=== PATIENT | female | born 1940 | race African-American/Black ===

== ENCOUNTER → 2019-05-15 | Outpatient (CLI) | payer OTHER ==
[~2019-05-15] MED LIST: ARAVA20 MG PO; ASA; ASPIR 8181 MG PO; CARVEDILOL3.125 MG PO; CENTRUM SILVER1 EAC4 PO; HYDROCODON-ACE1 EAC7 PO; K-DUR 20 MEQ T20 MEQ PO; LEFLUNOMIDE20 MG PO; LEVOTHYROXIN0.088 MG PO; LISINOPRIL2.5 MG PO; NAPROSYN500 MG PO; OMEPRAZOLE 20 M20 M1 PO; PREDNISONE 5 MG5 M1 PO; TRAMADOL 50 MG50 MG PO; TUMS PO; ULTRACET TABLET1 TAB PO; VITAMIN D2000 UNIT PO; VITAMINC500 PO
== END ==
LOC: RAD 14:07
DX: M47.26 Other spondylosis with radiculopathy, lumbar region (principal); M48.061 Spinal stenosis, lumbar region without neurogenic claudication; M46.06 Spinal enthesopathy, lumbar region; M41.86 Other forms of scoliosis, lumbar region

== ENCOUNTER → 2019-05-23 | Outpatient (CLI) | payer OTHER | LOC: MRI 14:36 | DX: M40.46 Postural lordosis, lumbar region (principal); M51.16 Intervertebral disc disorders with radiculopathy, lumbar region; M51.37 Other intervertebral disc degeneration, lumbosacral region; M43.16 Spondylolisthesis, lumbar region; M05.79 Rheumatoid arthritis with rheumatoid factor of multiple sites without organ or systems involvement; G89.29 Other chronic pain; M51.24 Other intervertebral disc displacement, thoracic region; M51.25 Other intervertebral disc displacement, thoracolumbar region; M12.88 Other specific arthropathies, not elsewhere classified, other specified site; M48.061 Spinal stenosis, lumbar region without neurogenic claudication; M47.815 Spondylosis without myelopathy or radiculopathy, thoracolumbar region ==

== ENCOUNTER → 2019-11-13 | Outpatient (CLI) | payer OTHER ==
[~2019-11-13] VITALS: Ht 162.6 cm; Wt 61.7 kg
[~2019-11-13] MED LIST changes: -LEVOTHYROXIN0.088 MG PO; +LEVOXYL88 MCG PO; +ULTRAM50 MG PO
[2019-11-13 13:07] VITALS: BP 148/81
--- NOTE | 2019-11-13 13:28 | NUR ---
Pain Clinic Assessment: 1. History of Osteoarthritis: KNEES SPINE History of Rheumatoid Arthritis: YES 2. Height: 5 ft. 4 in. 162.6 cm. Weight: 136.0 lb. oz. 61.689 kg. Patient's BMI: 23.3 3. Vital Signs: BP: 148/81 Pulse: 70 Resp: 14 Temp: 02 Sat: 98 ECG Mon: 4. Pain Intensity: 8 5. Fall Risk: Dizziness: N Needs help standing or walking: Y Fallen in the last 3 months: N Fall risk comments: 6. Patient on Blood Thinner: None 7. History of Hypertension: N 8. Opioid Therapy greater than 6 weeks: N Opiate Contract Signed: 9. Risk Assessment Tool Provided: 10. Functional Assessment Tool: 11. Recreational Drug Use: Never Drug Type: Tobacco Use: Never Smoker Tobacco Type: Amount or Packs/day: How Many Years: Alcohol Use: No Frequency: Quant:
--- NOTE | 2019-11-26 09:14 | HPC ---
[facility] [address] [address] PAIN MANAGEMENT CONSULTATION Name: VERN OVERTON [facility] [id number] Admission: 11/13/19 Attend Phys: Pino Cuellar DO Discharge: Date of : 40 Report #: [id number] THIS REPORT FOR: cc: Denae Toney MD,Pino Carrillo MD, DO ~ DATE OF SERVICE: 11/13/2019 REFERRING PHYSICIAN: Dr. Isaias Triplett CHIEF COMPLAINT: Low back pain, along with left lower extremity pain with paresthesias. HISTORY OF PRESENT ILLNESS: As you know, the patient is a very pleasant 79-year-old female who reports longstanding history of low back pain, left lower extremity pain that began somewhere between [id number]. She denies any specific injury or trauma. She has "just put up with the symptoms." She has discussed her case with her primary care physician who has trialled conservative treatment options with no benefit. Apparently, the patient was on gabapentin, but was taking it on an as needed basis and had only taken 3-4 doses in a week, too sporadic to really receive any improvement. She stated she was experiencing some GI upset with that medication. She sought further evaluation through her care giver, Dr. Isaias Triplett, who sent her for x-ray imaging, which showed degenerative changes. Those degenerative changes prompted MRI, which showed severe central canal stenosis at multiple levels. The patient was subsequently referred to our clinic and based on the notes from Dr. Isaias Triplett, may be also seen by Neurosurgery, though the patient at this point has not had that consultation. She has been referred to our service to discuss treatment options for lumbar radicular symptoms. The patient indicates today her pain is continuous and steady. She describes the pain as burning, aching, throbbing, sharp, tender, numbness and tingling, places current pain score at 8/10, daily average at 7-8/10, worst pain that has been is 10/10. The patient states that any activities exacerbate symptoms, rest tends to improve pain. She has been referred to our service to discuss treatment options for suspected lumbar radiculopathy based on the findings of her MRI, which showed severe central canal stenosis at multiple levels and near complete obliteration of the lateral recess on the left at the L5-S1 level. PAST MEDICAL HISTORY: 1. Hypertension. 2. Hypothyroidism. 3. Chronic colon problems. 4. Chronic gastroesophageal reflux disease and abdominal pain. 5. Degenerative joint disease. [facility] [address] [place] [address] PAIN MANAGEMENT CONSULTATION Name: VERN OVERTON Room #: REG [facility] Ji#: [id number] Admission: 11/13/19 Attend Phys: Pino Cuellar DO Discharge: Date of : 40 Report #: [id number] 6. Osteoarthritis. 7. Rheumatoid arthritis. 8. Chronic low back pain. PAST SURGICAL HISTORY: 1. Thyroidectomy. 2. Lumbar spine surgery (unknown to the patient the procedure that was performed.) SOCIAL HISTORY: The patient denies tobacco use. Denies IV or illicit drug use. She retired about 29 years ago. She is accompanied by a family member present in room. She is not in litigation in regards to pain. She is on disability income. REVIEW OF SYSTEMS: Positive for fatigue and weakness, changes in weight, headaches, wearing corrective eyewear, cataracts, blurred vision, heart trouble, shortness of breath walking or lying flat, frequent urination, nocturia, numbness and tingling sensations involving the left lower extremity, thyroid disease, heat and cold intolerance. All other review of systems negative per 12-point review of systems, and those listed in history of present illness. Pain impact score 46/70, indicating severe interference of daily activities secondary to pain. ALLERGIES: CODEINE, METHOTREXATE, ERYTHROMYCIN, CLARITHROMYCIN, NYSTATIN. CURRENT MEDICATIONS: Tramadol 50 mg every 6 hours p.r.n. for pain, Arava 20 mg once a day, ascorbic acid 500 mg once a day, calcium carbonate 1 tab per day, aspirin 81 mg per day, multivitamin 1 tab per day, omeprazole 20 mg per day, levothyroxine 88 mcg per day, prednisone 5 mg once a day, carvedilol 3.125 mg b.i.d., lisinopril 2.5 mg once a day, potassium chloride 20 mEq p.o. daily. IMAGING: MRI lumbar spine obtained 05/23/2019 shows a left paracentral disk protrusion and foraminal protrusion at the L2-L3 level. Central canal is not grossly narrowed. There is severe left foraminal stenosis at this level. L3-L4: There is disk extrusion, severe facet arthropathy, spinal canal is severely narrowed. There is little CSF noted in the canal itself, extruded disk material severely narrows bilateral neural foramen. L4-L5: Mild disk bulge, facet arthropathy, severe central canal stenosis, moderate right neural foraminal stenosis. L5-S1: There is extruded disk fragment on the left lateral recess, which obliterates the entire lateral recess; spinal canal is significantly narrowed. Neural foramen are significantly narrowed. PQRS: The patient has known arthritic changes of the cervical spine, lumbar spine, bilateral knees. She does have history and is currently undergoing treatment for rheumatoid arthritis. She is placing pain intensity at 8/10. She [address] [place] [address] PAIN MANAGEMENT CONSULTATION Name: VERN OVERTON Room #: REG [facility]#: [id number] Admission: 11/13/19 Attend Phys: Pino Cuellar DO Discharge: Date of : 40 Report #: [id number] is a fall risk, but has not had a fall in last 3 months. She is not on blood thinners, but is treated for hypertension. She is currently on tramadol and has a low opioid addiction potential. Pain impact score is 46/70, severe interference of daily activities secondary to pain. PHYSICAL EXAMINATION: VITAL SIGNS: Blood pressure 140/81, pulse is 70, respiratory rate 14 and unlabored. The patient is 98% on room air. Height 5 feet 4 inches tall, weight 136 pounds and BMI calculated 23.3. GENERAL: Well-developed, well-nourished, well-hydrated, thin, 79-year-old female appearing stated age. She is in no acute distress, awake, alert and oriented x 3, pain is rated at 8/10. HEENT: Normocephalic, atraumatic. Pupils equal, round and reactive. Extraocular muscles are intact. Sclerae nonicteric without injection. NEUROLOGIC: Cranial nerves 2-12 grossly intact. Speech is fluent for patient. LUNGS: Clear, no wheeze, rhonchi or rales. CARDIOVASCULAR: Regular. No appreciable gallop, no rub. ABDOMEN: Soft. Normoactive bowel sounds. EXTREMITIES: Show no clubbing, no cyanosis. There is significant right lower extremity edema, near 3+ and pitting. Mild left lower extremity edema, 1+, nonpitting. MUSCULOSKELETAL: Lower extremity strength is weakened on the left when compared to the right. Strength is rated at 3-1/2-4 with hip extension, knee extension on the left when compared to the right. Pain is generated with these maneuvers. Seated straight leg raising is positive on the left, negative right. There is no ankle clonus, but the deep tendon reflexes on the left appear slightly diminished when compared to the right, mainly at the Achilles. Muscle bulk appears equal and symmetrical in comparing left lower extremity to right. Seated straight leg raising positive on the left. Supine straight leg raising positive on the left. Elizabeth's test is positive for some arthritic changes in the bilateral hips consistent with the patient's medical history. Gait is extremely antalgic favoring left lower extremity. ASSESSMENT: 1. Symptomatic lumbar radiculopathy. 2. 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 3. Critical lateral recess stenosis of the lumbar spine. 4. Severe near critical neural foraminal stenosis of the lumbar spine. 5. Extrusion of the disk at the L5-S1 level. 6. Displacement of lumbar intervertebral disk with radiculopathy. 7. Lumbosacral spondylosis with radiculopathy. 8. Lumbar degeneration. 9. Chronic intractable pain. PLAN: 1. Based on today's physical exam, the history the patient provides, the [address] [address] PAIN MANAGEMENT CONSULTATION Name: VERN OVERTON Room #: REG [facility] Ji#: [id number] Admission: 11/13/19 Attend Phys: Pino Cuellar DO Discharge: Date of : 40 Report #: [id number] description which the patient uses in regards to pain as well as the location of symptoms, likely source of the patient's low back pain and left lower extremity pain is a lumbar radiculopathy. The findings of the MRI are consistent at the L5-S1 level with the patient's distribution. We discussed the treatment options based on this extruded disk fragment and critical lateral recess stenosis as well as the severe neural foraminal stenosis. The following was discussed with the patient for treatment options. We discussed physical therapy, stretching exercises and core strengthening as a treatment option. This will maintain lower extremity strength and may improve overall pain. We discussed suggestions and medication management, either utilizing nortriptyline, amitriptyline, Cymbalta, Lyrica or gabapentin. We discussed lumbar epidural injection under fluoroscopic guidance for which the patient was referred to our clinic. We also discussed surgical options that I believe given the severity of the findings of her MRI will likely be necessary. After reviewing the risks and benefits of all the proposed treatment options, the patient chose the following: A. The patient has been referred to Physical Therapy twice a week for 4 weeks. She will begin the physical therapy at her earliest convenience. We have made the patient an appointment back in 3 weeks to see how the physical therapy is progressing and determine if adjustments in treatment through physical therapy are necessary or whether continuation of this conservative option is appropriate. B. The patient and I did discuss the medications most useful for neuropathic symptoms. She has requested that we provide suggestions for treatment to her primary care. Apparently, she was on gabapentin in the past, it was provided on a p.r.n. basis, which does not work with the pharmacokinetics of that medication. She states that she was experiencing some GI upset with that medication. We would recommend at this point a trial of Lyrica, one could start the medication at 50 mg at night, continue for 7 nights then increase to 100 mg. If no improvement in symptoms, no side effects, then increase to 50 mg in the morning, continuing the 100 mg at night. Continue for another 7 days. If no improvement in symptoms, no side effects, then increase to 100 mg b.i.d., continuing the titration by 50 mg every 7 days to reach levels of efficacy versus side effects of sleepiness, disorientation, confusion, mental slowing. One could also consider the use of duloxetine, which has been shown to be effective for neuropathic pain in the 90-120 mg range. If this was to be initiated, we would recommend 30 mg initial dose. Continue for 7 days, then increase the medication to 60 mg, continue for another 7 days, no side effects and no improvement, then increase to 30 mg morning and 60 mg at night, ultimately reaching 60 mg b.i.d. for efficacy. 2. We will begin the process of preapproval for the patient to undergo lumbar epidural injection the reason why the patient was referred to our clinic. This authorization could take anywhere from 4-7 working days. We will obtain this authorization and discuss its use possibly at a followup visit. Again, the authorization should be completed before we see [place] [address] PAIN MANAGEMENT CONSULTATION Name: VERN OVERTON Room #: REG CLI Margy#: [id number] Admission: 11/13/19 Attend Phys: Pino Cuellar DO Discharge: Date of : 40 Report #: [id number] visit in 3 weeks. 3. Would recommend the patient be evaluated by Neurosurgery. I believe this critical lateral stenosis at the L5-S1 level with the severe central canal stenosis at L3-L4, L4-L5 and the L5-S1 levels may require decompression. Certainly, the critical lateral recess stenosis will need a decompression as there is complete obliteration of the lateral recess and impingement upon the left L5 nerve root, consistent with the patient's pain. We are hopeful that the injection proposed in this dictation and a conservative treatment options work for the patient, though I would recommend a Neurosurgery consultation for a complete evaluation. 4. We wish to thank Dr. Isaias Triplett for the referral of this patient to our clinic. We will keep you apprised of her response to treatment as we address the patient's pain with physical therapy and epidural injections. We will be seeing her back in followup visit in 3 weeks and at that time, we can report on the efficacy of the physical therapy and whether or not she wishes to choose to undergo the epidural injection proposed. Again, we wish to thank you for the opportunity to see the patient in consultation. <ELECTRONICALLY SIGNED> By: Pino Cuellar DO 11/26/19 0914 [id number] Pino Cuellar DO /nt
== END ==
LOC: PAIN 06-19 13:25
PROVIDERS: ATTEND Anesthesiology Pain Medicine
DX: K21.9 Gastro-esophageal reflux disease without esophagitis (principal); I10 Essential (primary) hypertension; E03.9 Hypothyroidism, unspecified; M06.9 Rheumatoid arthritis, unspecified; M19.90 Unspecified osteoarthritis, unspecified site; Z79.899 Other long term (current) drug therapy; Z88.5 Allergy status to narcotic agent

== ENCOUNTER → 2019-12-10 | Outpatient (CLI) | payer OTHER ==
[~2019-12-10] VITALS: Ht 162.6 cm; Wt 62.0 kg
[2019-12-10 14:14] VITALS: BP 134/65
--- NOTE | 2019-12-10 14:23 | NUR ---
Pain Clinic Assessment: 1. History of Osteoarthritis: KNEES SPINE History of Rheumatoid Arthritis: YES 2. Height: 5 ft. 4 in. 162.6 cm. Weight: 136.6 lb. oz. 61.961 kg. Patient's BMI: 23.4 3. Vital Signs: BP: 134/65 Pulse: 61 Resp: 16 Temp: 02 Sat: 96 ECG Mon: 4. Pain Intensity: 2; 7 WHEN ACTIVE 5. Fall Risk: Dizziness: N Needs help standing or walking: Y Fallen in the last 3 months: Y Fall risk comments: 6. Patient on Blood Thinner: None 7. History of Hypertension: N 8. Opioid Therapy greater than 6 weeks: N Opiate Contract Signed: 9. Risk Assessment Tool Provided: 10. Functional Assessment Tool: 11. Recreational Drug Use: Never Drug Type: Tobacco Use: Never Smoker Tobacco Type: Amount or Packs/day: How Many Years: Alcohol Use: No Frequency: Quant:
--- NOTE | 2019-12-17 14:07 | HPC ---
[facility] [address] [address] PAIN MANAGEMENT CONSULTATION Name: VERN OVERTON [facility] [id number] Admission: 12/10/19 Attend Phys: Pino Cuellar DO Discharge: Date of : 40 Report #: [id number] THIS REPORT FOR: cc: Denae Toney MD,Pino Carrillo MD, DO ~ DATE OF SERVICE: 12/10/2019 CHIEF COMPLAINT: Low back pain, left lower extremity pain and paresthesias. HISTORY OF PRESENT ILLNESS: As you know, the patient is a pleasant 79-year-old female with longstanding history of low back pain, left lower extremity pain with paresthesias. All began somewhere between 2014- 2015. The patient reports since our initial visit of 11/13/2019, she has had multiple falls. She states she is walking along normally for her and has complete loss of sensation in the left leg and falls. She has sought evaluation through the vein clinic of [facility] who advised the patient surgical options for her varicose veins might be available to address her bilateral lower extremity edema, but this would not be the source of the patient's falling. She returns today in followup visit with what you are aware of is a severe central canal stenosis near critical at multiple levels that will need ultimately be compressed. We offered the patient epidural injection at last visit. She chose to trial medication management. We moved her from gabapentin to Lyrica with titrating dosing. Apparently, the patient did not wish to begin the therapy after she read information about the medication itself. She returns today in followup visit to discuss options for treatment. She is placing pain at 07/15, when active up to 12/12. ALLERGIES: CODEINE, METHOTREXATE, ERYTHROMYCIN, CLINDAMYCIN, NYSTATIN. CURRENT MEDICATIONS: Ultram 50 mg 3 times a day, Arava 20 mg once a day, ascorbic acid 500 mg once a day, potassium chloride 20 mEq p.o. daily, lisinopril 2.5 mg once a day, carvedilol 3.125 mg b.i.d., prednisone 5 mg per day, levothyroxine 88 mcg per day, omeprazole 20 mg per day, vitamin supplementation 1 tab per day, aspirin 81 mg per day, calcium carbonate 500 mg once a day. SOCIAL HISTORY: The patient reports she is a nonsmoker. Denies IV or illicit drug use. She has been retired about 29 years. She is accompanied by a family member present in room. IMAGING: There is no new imaging available. PQRS: The patient has known arthritic changes of the cervical spine, lumbar spine, bilateral knees. Does have a history [place] [address] PAIN MANAGEMENT CONSULTATION Name: VERN OVERTON Room #: REG [facility] Ji#: [id number] Admission: 12/10/19 Attend Phys: Pino Cuellar DO Discharge: Date of : 40 Report #: [id number] arthritis. She is placing pain today 2-12/12. She is a fall risk and has had multiple falls since our last visit. She is not on blood thinners. She is treated for hypertension. She is not on any chronic opioids, has a low opiate addiction potential. Pain impact score is rated at 45/70. PHYSICAL EXAMINATION: VITAL SIGNS: Blood pressure 134/65, pulse is 61, respiratory rate 16 and unlabored. The patient is 96% on room air. Height 5 feet 4 inches tall, weight 136.6 pounds, BMI calculated 23.4. GENERAL: Well-developed, well-nourished, well-hydrated 79-year-old female, appears older than stated age. She is placing current pain score today 2-10. HEENT: Normocephalic, atraumatic. Pupils equal, round and reactive. Speech fluent. EXTREMITIES: Show no clubbing, no cyanosis. There is 3+ pitting lower extremity edema noted bilaterally. MUSCULOSKELETAL: Lower extremity strength is weakened on the left when compared to the right. Strength with hip extension and knee flexion on the left is about 3-1/2 to 4 over 5. Seated straight leg raising is positive on the left. Supine straight leg raising positive on the left. Elizabeth's test is negative. ASSESSMENT: 1. Symptomatic lumbar radiculopathy. 2. Severe central canal stenosis of lumbar spine. 3. Critical lateral recess stenosis of lumbar spine. 4. Critical neural foraminal stenosis of lumbar spine. 5. Extrusion of disk at L5-S1. 6. Displacement of lumbar intervertebral disk with radiculopathy. 7. Lumbosacral spondylosis with radiculopathy. 8. Lumbar degeneration. 9. Chronic intractable pain. PLAN: 1. The patient returns today in followup visit where we once again have had over 30 minute discussion about treatment options. The patient I do not feel has a good understanding of the pathology that she has and what it will take to alleviate her symptoms. She has now sustained multiple falls since our last visit, which was 11/13/2019. One of these falls led to fairly significant head bruising. We have had a discussion with the patient again today that her critical stenosis is going to have to be addressed surgically to alleviate these symptoms, I am very concerned about the falls that she is having. She is being worked up for intracranial issues when the patient is describing complete consciousness when she is falling, just loss of sensation in the left leg consistent with her lumbar radiculopathy. We will defer to the primary team to continue to work up from a cognition and central nervous system problem, though the problems of the recent fall appear to be related to severe near critical spinal stenosis. We discussed again with the patient treatment options for [facility] [address] [place] [address] PAIN MANAGEMENT CONSULTATION Name: VERN OVERTON Room #: REG [facility] Ji#: [id number] Admission: 12/10/19 Attend Phys: Pino Cuellar DO Discharge: Date of : 40 Report #: [id number] therapy including the surgical option, which will be necessary. 2. The patient wishes to consider her options. She wants to make changes in her gabapentin in hopes of improving pain. I advised the patient that little or no benefit will likely be seen with these medications, specifically in regards to falls. She may see improvement in pain, but this will not improve her day-to-day function. She wishes to make the adjustments in the gabapentin. We have given a titration schedule to do so. The patient has the gabapentin available to her, does not need a refill of medications at this time. She can follow up with us or her primary care physician if she wishes to remain on the therapy. 3. We will see the patient back in followup visit on an as needed basis. We have discussed with the patient the possibility of undergoing an epidural injection to improve pain, but have advised there is a likelihood that she will see no improvement in overall function, specifically in regards to the recent falls due to central canal stenosis as the injections cannot provide benefit from a mechanical standpoint. She will consider her options and contact our clinic if she wishes to move forward with injections. 4. We will see the patient back in followup visit on an as needed basis. We will be returning her care to her primary care physician with the suggestions for surgical consultation. We will see her back as necessary. <ELECTRONICALLY SIGNED> By: Pino Cuellar DO 12/17/19 1407 [id number] 1334 Pino Cuellar DO /nt
== END ==
LOC: PAIN 11-27 08:32
PROVIDERS: ATTEND Anesthesiology Pain Medicine
DX: M51.17 Intervertebral disc disorders with radiculopathy, lumbosacral region (principal); M47.27 Other spondylosis with radiculopathy, lumbosacral region; R20.2 Paresthesia of skin; Z79.899 Other long term (current) drug therapy

== ENCOUNTER → 2020-01-14 | Outpatient (CLI) | payer OTHER ==
[~2020-01-14] VITALS: Ht 162.6 cm; Wt 68.0 kg
[~2020-01-14] MED LIST changes: +GABAPENTIN100 MG PO; +NEURONTIN300 MG PO
[2020-01-14 10:04] VITALS: BP 157/90
--- NOTE | 2020-01-14 10:20 | NUR ---
Pain Clinic Assessment: 1. History of Osteoarthritis: KNEES SPINE History of Rheumatoid Arthritis: YES 2. Height: 5 ft. 4 in. 162.6 cm. Weight: 150.0 lb. oz. 68.040 kg. Patient's BMI: 25.7 3. Vital Signs: BP: 157/90 Pulse: 79 Resp: 18 Temp: 02 Sat: 97 ECG Mon: 4. Pain Intensity: 0 AT REST. 9 WITH WALKING 5. Fall Risk: Dizziness: Y Needs help standing or walking: Y Fallen in the last 3 months: N Fall risk comments: 6. Patient on Blood Thinner: None 7. History of Hypertension: N 8. Opioid Therapy greater than 6 weeks: N Opiate Contract Signed: 9. Risk Assessment Tool Provided: 10. Functional Assessment Tool: 11. Recreational Drug Use: Never Drug Type: Tobacco Use: Never Smoker Tobacco Type: Amount or Packs/day: How Many Years: Alcohol Use: No Frequency: Quant:
--- NOTE | 2020-01-15 11:01 | HPC ---
[facility] [place] [address] PAIN MANAGEMENT CONSULTATION Name: VERN OVERTON Room #: REG [facility] Juan.#: [id number] Admission: 01/14/20 Attend Phys: Pino Cuellar DO Discharge: Date of : 40 Report #: [id number] THIS REPORT FOR: cc: Denae Toney MD,Pino Carrillo MD, DO ~ DATE OF SERVICE: 01/14/2020 REFERRING PHYSICIAN: Isaias Triplett M.D. CHIEF COMPLAINT: Low back pain, left lower extremity pain and paresthesias. HISTORY OF PRESENT ILLNESS: As you know, the patient is a pleasant 79-year-old female with longstanding history of low back pain, left lower extremity pain with paresthesias. The patient reports pain began somewhere between [id number]. No inciting injury or trauma. The patient continues to experience multiple falls, but states that the gabapentin that we started the patient on at our last visit has been quite beneficial for pain control. She takes gabapentin 400 mg in the evening and 300 mg in the morning with improvement in overall pain. She continues to take tramadol p.r.n. for pain control. She returns today in followup visit for further adjustments in the gabapentin therapy. She is denying side effects of sleepiness, disorientation, confusion, mental slowing with the medications. She returns today requesting adjustments in this therapy in hopes of further pain improvement. She is placing her pain score today 0/10, when she is ambulating 9/10. She is reporting increased weight gain, decrease in urinary output. She is also showing increased edema in the lower extremities. Also, describing increased breast fullness on the left side. ALLERGIES: CODEINE, METHOTREXATE, ERYTHROMYCIN, CLINDAMYCIN, NYSTATIN. CURRENT MEDICATIONS: Ultram 50 mg 5 times a day, Arava 20 mg once a day, ascorbic acid 500 mg once a day, potassium chloride 20 mEq p.o. daily, lisinopril 2.5 mg once a day, carvedilol 3.125 mg b.i.d., prednisone 10 mg once a day, levothyroxine 88 mcg per day, omeprazole 20 mg per day, multivitamin 1 tab per day, aspirin 81 mg per day, calcium carbonate 500 mg once a day. SOCIAL HISTORY: The patient reports herself as a nonsmoker. Denies IV or illicit drug use. She retired about 29 years ago. She is accompanied by a family member present in room today. IMAGING: No new imaging available. PQRS: The patient has known arthritic changes of the cervical spine, lumbar spine, bilateral knees. She does have a history of rheumatoid arthritis, being treated with oral steroids. She is placing the pain intensity today anywhere [address] [address] PAIN MANAGEMENT CONSULTATION Name: VERN OVERTON Room #: REG [facility] Margy#: [id number] Admission: 01/14/20 Attend Phys: Pino Cuellar DO Discharge: Date of : 40 Report #: [id number] from 0-9/10. She is a fall risk, but has not had a fall since our last visit. She is not on blood thinners nor is she treated for hypertension. She is on chronic opioid like medications and has a low opioid addiction potential. Pain impact score rated at 60/70. PHYSICAL EXAMINATION: VITAL SIGNS: Blood pressure 157/90, pulse 79, respiratory rate 18 and unlabored. The patient is 97% on room air. Height 5 feet 4 inches tall, weight 150 pounds, BMI calculated at 25.7. GENERAL: Well-developed, well-nourished, well-hydrated 79-year-old female, appearing older than stated age. She is placing current pain score anywhere from 0-9/10 depending on activity. HEENT: Normocephalic, atraumatic. Speech is fluent. She is deemed a good historian. EXTREMITIES: Show no clubbing, no cyanosis. There is 3+ pitting lower extremity edema noted again today. MUSCULOSKELETAL: Lower extremity strength is weakened on the left when compared to the right. Gait is extremely antalgic. Hip extension and knee flexion on the left reduced in strength when compared to the right. Seated straight leg raising positive on the left. Supine straight leg raising positive on the left. ASSESSMENT: 1. Symptomatic lumbar radiculopathy. 2. Severe central canal stenosis of lumbar spine. 3. Critical lateral recess stenosis of the lumbar spine. 4. Critical neural foraminal stenosis of lumbar spine. 5. Extrusion of the disk at L5-S1. 6. 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 7. Lumbosacral spondylosis with radiculopathy. 8. Lumbar degeneration. 9. Increasing generalized lower extremity edema. 10. Chronic intractable pain. PLAN: 1. The patient returns today in followup visit requesting adjustments in medication management to address her longstanding lumbar radicular symptoms secondary to critical central canal and neural foraminal stenosis. The patient states she is receiving some benefit with the gabapentin and wishes to make adjustments in this medication. She continues to describe difficulty with ambulation, which is consistent with her central canal stenosis without decompression. Her gait will not improve nor will her overall function. She returns for adjustments in medication management today. 2. We have agreed to adjust the gabapentin further. She is experiencing no side effects of sleepiness, disorientation, confusion, or mental slowing. We recommend she increase the gabapentin from 300 mg morning and 400 mg at night to 300 mg in morning and 500 mg at night, continue for 3 nights, then escalate to [facility] [address] [place] [address] PAIN MANAGEMENT CONSULTATION Name: VERN OVERTON Room #: REG [facility]..#: [id number] Admission: 01/14/20 Attend Phys: Pino Cuellar DO Discharge: Date of : 40 Report #: [id number] 600 mg at night, continuing 300 mg day dose. If no improvement in symptoms, no side effects, then begin escalating the morning dose at 100 mg every 3 days to reach the possibility of 600 mg b.i.d. The patient was advised to watch for side effects of sleepiness, disorientation, confusion, mental slowing with the therapy. Prescriptions were sent to the local pharmacy to address this titration. She was given 300 mg tablets to supplement 100 mg tablets to reach the titration as directed. All prescriptions sent via e-scribe to local pharmacy. 3. The patient will continue tramadol 50 mg up to 6 times a day for pain control. We recommend she utilize the lowest most effective dose. We have provided the patient with a prescription of the tramadol today, advising the patient that we will cover this medication for a short period of time. Once we have stabilized her on the gabapentin dose, she can return to the primary care physician and referring physician for further treatment for medication management. She is resistant to any type of interventional treatments at this time, which is what the patient was sent to our clinic to address. We will see her back in followup visit for further adjustments in medication management. Once stable on medication, will be returning to the referring physician and primary care physician for continued therapy. <ELECTRONICALLY SIGNED> By: Pino Cuellar DO 01/15/20 1101 1213 [id number] Pino Cuellar DO /nt
== END ==
LOC: PAIN 06:55
PROVIDERS: ATTEND Anesthesiology Pain Medicine
DX: G89.29 Other chronic pain (principal); M47.27 Other spondylosis with radiculopathy, lumbosacral region; M48.061 Spinal stenosis, lumbar region without neurogenic claudication; M51.17 Intervertebral disc disorders with radiculopathy, lumbosacral region; R60.0 Localized edema; Z88.8 Allergy status to other drugs, medicaments and biological substances; Z68.25 Body mass index [BMI] 25.0-25.9, adult; Z79.891 Long term (current) use of opiate analgesic; Z79.899 Other long term (current) drug therapy